=== PATIENT | male | born 1965 | race Caucasian/White ===

== ENCOUNTER 2020-09-02 15:22 | Emergency (ER) | payer MEDICARE, MEDICAID, SELFPAY ==
[2020-09-02 15:48] VITALS: BP 112/61; PULSE 84; RESP 16; TEMP 37.8; O2SAT 95; BMI 25.0
--- NOTE | 2020-09-02 15:56 | ED.OVERDOSE ---
HPI - Overdose General Chief Complaint: Overdose Stated Complaint: od Time Seen by Provider: 09/02/20 15:53 Source: patient and EMS Mode of arrival: EMS Limitations: no limitations History of Present Illness HPI Narrative: relapsed he is on suboxone - carries narcan, used and was nodding off so his son called no narcan given, wants to leave complaint: other (intoxication no overdose no narcan awake) Onset (ago): minute(s) (just prior to arrival) Context: Accidental Overdose: wanted to get high Treatments Prior to Arrival: none Related Data Allergies Allergy/AdvReac Type Severity Reaction Status Date / Time No Known Allergies Allergy Verified 09/02/20 15:47 Review of Systems Review of Systems: Constitutional : No Fever, No Chills ENT/Mouth : No Ear Pain, No Nasal Congestion, No sore throat Eyes: No Eye Pain, No Swelling, No Redness Cardiovascular : No Chest Pain, No SOB Respiratory : No Cough, No Sputum, No Dyspnea Gastrointestinal : No Nausea, No Vomiting, No Diarrhea, No Hematochezia, No Melena Genitourinary : No Dysuria, No Urinary Frequency, No Hematuria Musculoskeletal : No Myalgias Skin : No Skin Lesions, No rash Neuro : No Weakness, No Numbness, No Paresthesias, No Dizziness, No Headache Psych : no Anxiety, no Depression, no SI/HI PMFSH Past Medical History Medical History (Updated 09/02/20 @ 16:03 by Hannah Baires DO) Drug abuse Hernia Physical Exam Vital Signs: Vital Signs: Last Vital Signs Temp 100.0 F 09/02/20 15:48 Pulse 84 09/02/20 15:48 Resp 16 09/02/20 15:48 BP 112/61 09/02/20 15:48 Pulse Ox 95 09/02/20 15:48 Body Mass Index 25.0 Appearance: Alert. Oriented X3. No acute distress. Eyes: Pupils equal, round and reactive to light. ENT: Pharynx normal. Neck: Normal inspection. Neck supple. CVS: Normal heart rate and rhythm. Pulses normal. Respiratory: No respiratory distress. Breath sounds normal. Abdomen: Soft and nontender. Skin: Skin warm and dry. Normal skin color. Normal skin turgor. Extremities: No lower extremity edema. No calf ttp Neuro: Oriented X 3. No motor deficit. No sensory deficit. Course Course Course Narrative: pateint wants to leave awake and alert - GCS 15, no need for narcan, has narcan at home refuses detox MDM - Overdose MDM Narrative Medical decision making narrative: 55 yo male with opiate use disorder no SI, has narcan at home, was nodding off after use, has not received narcan is awake and alert refuses to stay declines detox help Discharge Plan Discharge Clinical Impression: Narcotic abuse Patient Disposition: Home, Self-Care Instructions: Narcotic Use Disorder (ED) Additional Instructions: return to ED for any worsening symptoms or concerns please consider detox, carry your narcan with you
--- NOTE | 2020-09-02 16:14 | MHC.RECOVSUP ---
Recovery Support note: Patient is a 55 year old [place] speaking male who presented to [facility] via [place] due to suspected overdose. Patient did not receive narcan and was able to discuss his substance use. Patient reports he is on Suboxone and that it had been working well however he was unable to excelsior picker his prescription and he relapsed due to having a large amount of money and no Suboxone. Patient reports he plans to get back on the Suboxone. Educated patient that he could come to the ED to get a dose of Suboxone if he cannot get his prescription. Patient accepted resources on AA, IOP and [facility].
== END 2020-09-02 16:20 | disposition home or self-care (01) ==
LOC: HO.ED 16:19
PROVIDERS: Emergency Provider Emergency Medicine
DX: T40.1X1A Poisoning by heroin, accidental (unintentional), initial encounter (principal); Y92.9 Unspecified place or not applicable; F11.10 Opioid abuse, uncomplicated; Z71.51 Drug abuse counseling and surveillance of drug abuser
CPT/HCPCS: 99283